=== PATIENT | male | born 1935 | race Caucasian/White ===

== ENCOUNTER 2017-04-05 09:57 | Emergency (ER) | payer MEDICARE, BC ==
[~2017-04-05] VITALS: Ht 172.7 cm; Wt 102.5 kg
[2017-04-05] MEDS ORDERED: ALLOPURINOL 10100 M1 PO (10:09)
[2017-04-05] MEDS ORDERED: VITAMIN D1000 UNI1 PO (10:10)
[2017-04-05] MEDS ORDERED: ATENOLOL 50MG T50 M1 PO (10:10)
[2017-04-05] MEDS ORDERED: LIPITOR 20 MG T20 M1 PO (10:10)
[2017-04-05] MEDS ORDERED: AMARYL4 MG PO (10:10)
[2017-04-05] MEDS ORDERED: METFORMIN HCL500 MG PO (10:11)
[2017-04-05] MEDS ORDERED: PIOGLITAZONE15 MG (10:11)
[2017-04-05] MEDS ORDERED: LISINOPRIL10 MG PO (10:11)
[2017-04-05] MEDS ORDERED: MAXZIDE-25 MG1 EACH PO (10:12)
[2017-04-05] MEDS ORDERED: TESSALON PERLE100 MG PO (11:09)
[2017-04-05 11:23] VITALS: BP 129/44
== END 2017-04-05 11:24 | disposition home or self-care (01) ==
LOC: M.ERS 09:57
DX: J06.9 Acute upper respiratory infection, unspecified (principal); J02.9 Acute pharyngitis, unspecified; I10 Essential (primary) hypertension; E11.9 Type 2 diabetes mellitus without complications; E78.5 Hyperlipidemia, unspecified; E66.9 Obesity, unspecified; Z98.890 Other specified postprocedural states; Z86.69 Personal history of other diseases of the nervous system and sense organs; Z88.5 Allergy status to narcotic agent; Z88.8 Allergy status to other drugs, medicaments and biological substances

== ENCOUNTER → 2017-04-14 | Outpatient (CLI) | payer MEDICARE, BC ==
[~2017-04-14] MED LIST: ALLOPURINOL 10100 M1 PO; AMARYL4 MG PO; ATENOLOL 50MG T50 M1 PO; BREO ELLIPTA 11 EACH INH; LIPITOR 20 MG T20 M1 PO; LISINOPRIL10 MG PO; MAXZIDE-25 MG1 EACH PO; METFORMIN HCL500 MG PO; OMEPRAZOLE20 MG PO; PIOGLITAZONE15 MG; TESSALON PERLE100 MG PO; VITAMIN D1000 UNI1 PO
== END ==
LOC: M.MRI 04-13 08:30
DX: S83.241A Other tear of medial meniscus, current injury, right knee, initial encounter (principal); M71.21 Synovial cyst of popliteal space [Baker], right knee; M17.11 Unilateral primary osteoarthritis, right knee; M25.461 Effusion, right knee; X58.XXXA Exposure to other specified factors, initial encounter; Y93.89 Activity, other specified; Y92.89 Other specified places as the place of occurrence of the external cause; Y99.8 Other external cause status

== ENCOUNTER 2018-02-03 10:44 | Inpatient (IN) | payer MEDICARE, BC ==
[~2018-02-03] VITALS: Ht 172.7 cm; Wt 95.3 kg
--- NOTE | ~2018-02-03 | PROC ---
[address] [address] PROCEDURE REPORT Name: IFRAH GUSMAN Room: [address] IN M.R.#: [id number] Admission: 02/03/18 Attend Phys: Gaudencio Landa MD Discharge: 02/07/18 Date of : 31 Report #: [id number] THIS REPORT FOR: //name// For GI report, please see the Provation report in Perceptive 7 content. By: [id number] Records Staff RUBENS /TALITA
--- NOTE | ~2018-02-03 | CON ---
[address] [address] CONSULTATION Name: IFRAH GUSMAN Room: [address] IN M.R.#: [id number] Admission: 02/03/18 Attend Phys: Gaudencio Landa MD Discharge: Date of : 31 Report #: [id number] THIS REPORT FOR: //name// CC: Jay Landa DATE OF SERVICE: 02/04/2018 REASON FOR CONSULTATION: Right upper quadrant pain, abnormal liver enzymes and jaundice. HISTORY OF PRESENT ILLNESS: This is an 82-year-old female with history of cholecystectomy 7 or 8 years ago due to gallbladder stones. The patient has been having right upper quadrant abdominal pain, which is intermittent. This usually radiates to the back. He also has had poor appetite and believes that he may have lost 10-15 pounds due to the same. He denies any diarrhea, constipation or vomiting but reports intermittent nausea, which is associated with pain. He had upper endoscopy about 3 weeks ago, which was significant for duodenal ulcer. He has been taking PPI for the same. PAST MEDICAL HISTORY: Significant for history of gallbladder disease status post cholecystectomy 7 years ago, abdominal hernia repair, diabetes mellitus x 15 years, hyperlipidemia, hypertension, gout, diverticulosis, chronic kidney disease and obesity. ALLERGIES: Significant to IODINE and HYDROCODONE. MEDICATIONS: Please refer to MAR. SOCIAL HISTORY: The patient lives at home with his . Denies alcohol or tobacco use. FAMILY HISTORY: Noncontributory. PHYSICAL EXAMINATION: VITAL SIGNS: Reveals blood pressure of 125/54, respiration 18, pulse 54 and temperature 97.6. LUNGS: Clear. CARDIOVASCULAR: Regular. ABDOMEN: Large, soft and tender to palpation in the right upper quadrant. Bowel sounds are positive. There is no rebound. LABORATORY DATA: Labs reveal sodium of 134, potassium 3.4, BUN is 34 and [facility] [address] [place] [address] CONSULTATION Name: IFRAH GUSMAN Room: [address]#: [id number] Admission: 02/03/18 Attend Phys: Gaudencio Landa MD Discharge: Date of : 31 Report #: [id number] creatinine 2.1. AST is 303, ALT 294, alkaline phosphatase 770 and total bilirubin is 10.6. WBC is 5.5 with hemoglobin of 11.1 and platelet of 299. Albumin is 2.4. IMAGING DATA: CT of abdomen and pelvis was obtained, which showed dilation of intra and extrahepatic ducts without any evidence of choledocholithiasis or pancreatic mass. There is bilateral stable renal cortical cyst and colonic diverticulosis. The dilation of the ducts are significantly greater compared to the CT obtained in 2017. ASSESSMENT AND PLAN: The patient with acute elevation of his liver function tests and bilirubin and right upper quadrant pain with a history of gallbladder stone and cholecystectomy 7 years ago. He may have common bile duct stones, which causing obstruction versus up and other cause of obstructive jaundice. We will consider endoscopic retrograde cholangiopancreatogram with possible stent placement. I will make further recommendation once we will complete his endoscopic retrograde cholangiopancreatogram. By: [id number] Blair MD /nt
[~2018-02-03 10:44] MED LIST changes: -BREO ELLIPTA 11 EACH INH; -OMEPRAZOLE20 MG PO
[2018-02-03 14:10] VITALS: BP 130/54
[2018-02-03 15:02] LABS: ABSOLUTE BASOPHILS 0.1 thou/uL (0.0-0.2); ABSOLUTE LYMPHOCYTES 1.1 thou/uL (0.8-5.3); ABSOLUTE MONOCYTES 0.7 thou/uL (0.0-1.2); ABSOLUTE NEUTROPHILS 4.8 thou/uL (1.6-8.1); BASOPHILS 1.3 %; EOSINOPHILS 0.6 %; HEMATOCRIT 37.6 % (42.0-52.0); HEMOGLOBIN 12.6 gm/dL (14.0-18.0); MCH 30.3 pg (26.0-34.0); MCHC 33.7 g/dL (28.0-37.0); MCV 90.1 fL (80.0-100.0); MPV 8.3 fl. (7.2-11.1); NUCLEATED RBCS 0 /100WBC; PLATELET COUNT* 277 thou/uL (150-400); POLYS 72.1 %; RBC 4.17 mil/uL (4.50-6.00); RDW-CV 15.1 % (10.5-14.5); WBC 6.7 thou/uL (4.0-11.0)
[2018-02-03 15:09] LABS: APTT 26.6 Seconds (25.0-31.3); PROTIME 10.5 Seconds (9.20-11.50)
[2018-02-03 15:18] LABS: ALBUMIN 2.8 g/dL (3.4-5.0); CALCIUM 9.3 mg/dL (8.5-10.1); CREATININE 2.1 mg/dL (0.6-1.3); DIRECT BILIRUBIN 10.2 mg/dL (<0.1-0.3); MAGNESIUM 1.8 mg/dL (1.8-2.4); TOTAL PROTEIN 6.6 g/dL (6.4-8.2)
[2018-02-03 15:23] LABS: POTASSIUM 2.9 mmol/L (3.5-5.1)
[2018-02-03 19:30] VITALS: BP 149/60
[2018-02-04 04:37] LABS: HEMATOCRIT 33.2 % (42.0-52.0); HEMOGLOBIN 11.1 gm/dL (14.0-18.0); MCH 30.4 pg (26.0-34.0); MCHC 33.5 g/dL (28.0-37.0); MCV 90.6 fL (80.0-100.0); MPV 8.8 fl. (7.2-11.1); RBC 3.66 mil/uL (4.50-6.00); RDW-CV 15.1 % (10.5-14.5); WBC 5.5 thou/uL (4.0-11.0)
[2018-02-04 04:49] LABS: ALBUMIN 2.4 g/dL (3.4-5.0); CALCIUM 8.7 mg/dL (8.5-10.1); CREATININE 2.1 mg/dL (0.6-1.3); MAGNESIUM 1.6 mg/dL (1.8-2.4); POTASSIUM 3.4 mmol/L (3.5-5.1); TOTAL BILIRUBIN 10.6 mg/dL (<0.1-1.0); TOTAL PROTEIN 5.8 g/dL (6.4-8.2)
[2018-02-04 08:00] VITALS: BP 125/54
[2018-02-04 16:41] VITALS: BP 112/45
--- NOTE | 2018-02-04 17:08 | EKG ---
[place] [address] ELECTROCARDIOGRAM REPORT Name: IFRAH GUSMAN Room: [address] ADM IN M.R.#: [id number] Admission: 02/03/18 Attend Phys: Gaudencio Landa MD Discharge: Date of : 31 Report #: [id number] THIS REPORT FOR: //name// [facility] Test Date: 2018-02-04 Test Time: 16:37:49 Pat Name: IFRAH GUSMAN Department: Room: [address] Gender: M [employer] Specialist: [facility] : 1935 Requested By: Kandice Blair Order Number: [id number] Ines MD: Alex Rodgers Measurements Intervals [place] Rate: 54 P: 67 IA: 303 QRS: 12 QRSD: 104 T: 51 QT: 485 QTc: 460 Interpretive Statements Sinus rhythm Prolonged IA interval Low voltage, extremity and precordial leads Abnormal R-wave progression, early transition No previous ECG available for comparison Electronically Signed On 02-04-2018 17:08:27 CDT by Alex Rodgers [email or web address] <ELECTRONICALLY SIGNED> By: Alex Rodgers MD, [facility] 02/04/18 1708 [id number] Alex Rodgers MD, [facility] /EPI
[2018-02-04 20:00] VITALS: BP 129/87
[2018-02-04 22:06] LABS: HEPATITIS B SURFACE AG Negative (Negative)
[2018-02-05 08:16] VITALS: BP 129/87
[2018-02-05] MEDS ORDERED: OMEPRAZOLE20 MG PO (09:08)
[2018-02-05] MEDS ORDERED: BREO ELLIPTA 11 EACH INH (09:12)
[2018-02-05 09:29] VITALS: BP 123/58
[2018-02-05 10:07] LABS: ALBUMIN 2.3 g/dL (3.4-5.0); CALCIUM 8.7 mg/dL (8.5-10.1); CREATININE 2.1 mg/dL (0.6-1.3); POTASSIUM 3.4 mmol/L (3.5-5.1); TOTAL BILIRUBIN 11.7 mg/dL (<0.1-1.0); TOTAL PROTEIN 5.7 g/dL (6.4-8.2)
[2018-02-05 13:53] VITALS: BP 141/67
[2018-02-05 16:00] VITALS: BP 123/50
[2018-02-05 16:08] LABS: ANA INTERPRETATION Negative (Negative)
[2018-02-06 00:28] VITALS: BP 144/55
[2018-02-06 04:03] LABS: HEMATOCRIT 32.1 % (42.0-52.0); HEMOGLOBIN 10.8 gm/dL (14.0-18.0); MCH 30.7 pg (26.0-34.0); MCHC 33.7 g/dL (28.0-37.0); MCV 91.1 fL (80.0-100.0); MPV 8.6 fl. (7.2-11.1); RBC 3.53 mil/uL (4.50-6.00); WBC 6.3 thou/uL (4.0-11.0)
[2018-02-06 04:30] LABS: ALBUMIN 2.2 g/dL (3.4-5.0); CALCIUM 8.6 mg/dL (8.5-10.1); CREATININE 2.4 mg/dL (0.6-1.3); POTASSIUM 4.2 mmol/L (3.5-5.1); TOTAL BILIRUBIN 13.6 mg/dL (<0.1-1.0); TOTAL PROTEIN 5.5 g/dL (6.4-8.2)
[2018-02-06 12:00] VITALS: BP 117/56
[2018-02-06 16:51] VITALS: BP 140/52
[2018-02-07 00:31] VITALS: BP 129/51
[2018-02-07 04:21] LABS: ALBUMIN 2.2 g/dL (3.4-5.0); CALCIUM 8.7 mg/dL (8.5-10.1); CREATININE 2.1 mg/dL (0.6-1.3); MAGNESIUM 1.6 mg/dL (1.8-2.4); POTASSIUM 3.8 mmol/L (3.5-5.1); TOTAL BILIRUBIN 15.7 mg/dL (<0.1-1.0); TOTAL PROTEIN 5.5 g/dL (6.4-8.2)
[2018-02-07 10:06] VITALS: BP 147/63
[2018-02-07 10:36] VITALS: BP 147/63
[2018-02-07 11:16] VITALS: BP 147/63
--- NOTE | 2018-02-09 13:08 | PATH ---
[address] [address] PATHOLOGY RPT PROCEDURE Name: IFRAH GUSMAN Room: [address] IN M.R.#: [id number] Admission: 02/03/18 Date of : 31 Discharge: 02/07/18 Report #: [id number] Path Case #: [id number] [facility] Accession Number: [id number] . 01 Material submitted: . DUODENAL STRICTURE BIOPSY . 01 Clinical history: . None provided . 02 Diagnosis: Duodenal stricture biopsy: - Severe nonspecific active duodenitis with ulceration and associated epithelial atypia, negative for granulomas and nondiagnostic for dysplasia/adenomatous change. See comment. (CAROL:gadiel; 02/08/2018) QMS/02/08/2018 . 02 Comment: Reviewed with Dr. Luis Tariq, who agrees with the diagnosis. . (CAROL:gadiel; 02/08/2018) . 02 Electronically signed: . Lito Pham MD, Pathologist NPI- [id number] . 01 Gross description: . Received in formalin labeled "Ifrah Gusman, duodenal stricture biopsy," are 2 segments of broussard soft tissue measuring 0.8 x 0.3 x 0.2 cm in aggregate dimensions and ranging from 0.3 to 0.5 cm in maximum dimension. The specimen is submitted entirely in cassette A1. (TSD; 02/05/2018) TOB/TOB . 02 Pathologist provided ICD-10: K29.80, K26.9 . 02 CPT . 743090 Specimen Comment: A courtesy copy of this report has been sent to Specimen Comment: [phone], , , . Specimen Comment: Report sent to ,DR ALCANTARA,DR SIMPSON / Specimen Comment: DR LARA Specimen Comment: A duplicate report has been generated due to demographic updates. Performed at: 01 [place] [address] PATHOLOGY RPT PROCEDURE Name: IFRAH GUSMAN Room: [address] IN M.R.#: [id number] Admission: 02/03/18 Date of : 31 Discharge: 02/07/18 Report #: [id number] Path Case #: [id number] [address] [facility] [address], [place] [id number] MD Reymundo Amezquita MD Phone: [phone] Performed at: 02 [facility] [address], [place], [place] [id number] MD Lito Pham MD Phone: [phone]
== END 2018-02-07 11:19 | disposition short-term general hospital (02) | DRG 441 ==
LOC: M.CT 10:44 → M.3W 11:28 → M.TBA 11:28 → M.3W 13:57
PROVIDERS: Internal Medicine Gastroenterology; ADMIT Internal Medicine
PROC: 0FJB8ZZ Inspection of Hepatobiliary Duct, Via Natural or Artificial Opening Endoscopic (ICD-10-PCS; principal; 2018-02-05)
DX: K72.00 Acute and subacute hepatic failure without coma (principal); K83.1 Obstruction of bile duct; N18.4 Chronic kidney disease, stage 4 (severe); E78.5 Hyperlipidemia, unspecified; M10.9 Gout, unspecified; E11.22 Type 2 diabetes mellitus with diabetic chronic kidney disease; E11.51 Type 2 diabetes mellitus with diabetic peripheral angiopathy without gangrene; K26.9 Duodenal ulcer, unspecified as acute or chronic, without hemorrhage or perforation; J44.9 Chronic obstructive pulmonary disease, unspecified; I12.9 Hypertensive chronic kidney disease with stage 1 through stage 4 chronic kidney disease, or unspecified chronic kidney disease; K57.90 Diverticulosis of intestine, part unspecified, without perforation or abscess without bleeding; E66.9 Obesity, unspecified; Z68.31 Body mass index [BMI] 31.0-31.9, adult; Z86.73 Personal history of transient ischemic attack (TIA), and cerebral infarction without residual deficits; Z87.891 Personal history of nicotine dependence; Z90.49 Acquired absence of other specified parts of digestive tract; Z79.899 Other long term (current) drug therapy; Z88.8 Allergy status to other drugs, medicaments and biological substances; Z91.041 Radiographic dye allergy status